=== PATIENT | female | born 1995 | race Caucasian/White ===

== ENCOUNTER 2021-03-27 15:59 | Emergency (ER) | payer BC, MEDICAID, SELFPAY ==
[2021-03-27 16:02] VITALS: BP 153/69; PULSE 92; RESP 16; TEMP 36.6; O2SAT 98; BMI 34.9
[2021-03-27 16:10] VITALS: BP 153/69; PULSE 85; RESP 18; O2SAT 98
--- NOTE | 2021-03-27 16:11 | USR_ITS ---
NOTE: Report was unsigned for reason: Order was edited. Original Signature date and time was: 03/27/21 @ 1804 PROCEDURE INFORMATION: Exam: US Duplex Artery or Vein of the Abdominal and/or Reproductive Organs, Limited Exam date and time: 03/27/2021 5:02 PM Age: 25 years old Clinical indication: Other: Bleeding; Prior surgery; Surgery date: 1-6 months; Surgery type: x8wks ago; Additional info: Heavy vaginal bleeding 8 weeks post TECHNIQUE: Imaging protocol: Real-time duplex ultrasound scan of the arterial or venous flow of the abdomen and/or reproductive organs, with color Doppler flow and spectral waveform analysis with image documentation. Exam focused on the region of clinical interest. Duplex images were received to evaluate vascular conditions. COMPARISON: No relevant prior studies available. FINDINGS: Uterus: There is no hypervascularity of the endometrium. Ovaries: Right ovary has normal color Doppler flow. Spectral waveforms are normal. Left ovary is not clearly visible. IMPRESSION: 1. There is no right ovarian torsion. 2. The left ovary is not visible. PROCEDURE INFORMATION: Exam: US Pelvis, Transvaginal Exam date and time: 03/27/2021 5:02 PM Age: 25 years old Clinical indication: Other: Bleeding; Prior surgery; Surgery date: 1-6 months; Surgery type: x8wks ago; Additional info: Heavy vaginal bleeding 8 weeks post TECHNIQUE: Imaging protocol: Real-time transvaginal pelvic ultrasound with image documentation. Transvaginal imaging was used for better evaluation of the endometrium, adnexa, and/or cervix. COMPARISON: No relevant prior studies available. FINDINGS: Uterus/cervix: Uterine size and morphology is normal. Uterine dimensions are about 9.3 cm x 5.5 cm x 4.5 cm. The endometrial complex is homogeneous in echotexture without focal mass. No thickening. Thickness 6-7 mm. No hypervascularity detected. Right adnexa: The right ovary has normal size measuring 3.8 cm x 2.8 cm x 2.5 cm. Several small simple subcentimeter follicles within the right ovary are identified. Left adnexa: Left ovary is not visible. The left ovary is not visible. The left adnexa is obscured by bowel gas. Intraperitoneal space: No free fluid. [facility] US/US transvaginal [id number] IMPRESSION: 1. Normal ultrasound of the pelvis. 2. There is no ultrasound evidence of retained products of conception.
--- NOTE | 2021-03-27 16:14 | ED_ITS ---
Documented by User: [email or web address] Livingston 03/28/21 07:05 HPI - Female Genitourinary General: Chief complaint: Vaginal Bleeding Stated complaint: vaginal bleeding Time Seen by Provider: 03/27/21 16:11 History of Present Illness: HPI Narrative: Patient is a 25-year-old female comes to the ED with vaginal bleeding. Patient says she is having heavy vaginal bleeding approximately 8 weeks . This past was her first and they had to do an emergency due to patient having placenta previa and some vaginal bleeding at 36 weeks. Patient says the went well and baby is doing great. She does not breast-feed currently and received the Depo shot for control. About 6 weeks post she started developing some vaginal bleeding. She says it is just slowly increased over the past 2 weeks. For the past 2 days she is going through an adult depends every 2 hours. She endorses having some cramping abdominal pain that comes and goes. She says at its worst she rates it a 5 out of 10. She says she has been taking Tylenol and Motrin and took some Motrin before coming here to the ED. patient says she has normal periods regular but is always on control. She contacted her marble ceiling installer doctor in [place] today and they told her to come to the ED for further evaluation. Associated symptoms: Reports abdominal pain (Generalized lower crampy); Deny headache(s) or nausea Date of Last Menstrual Period: 03/27/21 Review of Systems Const: Denies: fever(s), chills or fatigue Eyes: Denies: change in vision or eye discomfort ENMT: Denies: throat pain, odynophagia, nasal discharge or nasal congestion Card: Denies: chest pain, palpitations, edema, swelling of feet/ankles, dyspnea on exertion or orthopnea Resp: Denies: dyspnea, productive cough or non-productive cough GI: Reports: abdominal pain (Generalized lower crampy); Denies: nausea, vomiting, diarrhea, constipation or hematochezia : Reports: vaginal bleeding; Denies: flank pain, dysuria or hematuria Musc: Denies: neck pain, back pain or extremity swelling Skin/Breast: Denies: rash or new lesions Neuro: Denies: headache(s), numbness in extremities or weakness in extremities [facility] Reproductive History: Date of last menstrual period: 03/27/21 Physical Exam Const: COMMON NORMALS: no acute distress, patient oriented x3, healthy appearing and alert GENERAL APPEARANCE: cooperative and comfortable HENMT: COMMON NORMALS: normocephalic HEAD & SCALP: normocephalic MOUTH: Normal oral and palatal mucosa present THROAT: posterior oropharynx normal and uvula midline Eye: COMMON NORMALS: Equal, round and reactive pupils present PUPIL: Yes Equal, round and reactive pupils present Neck/C-Spine: COMMON NORMALS: supple GENERAL: Yes normal visual inspection Resp: COMMON NORMALS: normal respiratory effort, No retractions, No use of accessory muscles and clear to auscultation bilaterally AUSCULTATION: clear to auscultation bilaterally Cardio: COMMON NORMALS: regular rate, regular rhythm, S1 normal heart sound present, S2 normal heart sound present, No gallops present (Cardio), No clicks present (Cardio), No murmurs present (Cardio) and Peripheral pulses 2+ throughout RATE: regular rate RHYTHM: regular rhythm HEART SOUNDS: S1 normal heart sound present and S2 normal heart sound present PERIPHERAL PULSES: Peripheral pulses 2+ throughout GI: COMMON NORMALS: Normal to inspection, nondistended, normoactive bowel sounds present, Soft to palpation, non-tender and no masses PALPATION: Yes Soft to palpation : COMMON NORMALS: Yes no CVA tenderness BLADDER/KIDNEY EXAM: Yes no CVA tenderness Back/Pelvis: COMMON NORMALS: no CVA tenderness Extremity: COMMON NORMALS: normal to inspection Neuro: COMMON NORMALS: patient oriented x3 and moves all extremities SENSORIUM/ORIENTATION: Yes alert Skin: GENERAL SKIN EXAM: dry skin Course Vital Signs: Vital signs: Vital Signs Temperature 98.9 F 03/27/21 18:44 Pulse Rate 61 03/27/21 18:44 Respiratory Rate 18 03/27/21 18:44 Blood Pressure 114/65 03/27/21 18:44 Pulse Oximetry 96 03/27/21 16:51 MDM - Female Lab Data: Attestation: I reviewed the patient's lab results. Labs: Lab Results 03/27/21 03/27/21 03/27/21 Range/Units 16:40 16:48 16:48 WBC 5.9 (4.0-10.0) 10^3/ uL RBC 4.00 L (4.1-5.3) 10^6/u L Hgb 11.9 (11.5-15.3) g/dL Hct 35.6 L (37.0-47.0) % MCV 89.0 (81-99) fL MCH 29.8 (28.0-34.0) pg MCHC 33.4 (30.0-36.0) g/dL RDW 13.2 (12.1-15.1) % Plt Count 311 (130-400) 10^3/c mm MPV 10.7 H (7.4-10.4) fL Neut % (Auto) 53.0 % Lymph % (Auto) 33.1 % Gregg % (Auto) 7.5 % Eos % (Auto) 5.3 % Baso % (Auto) 0.8 % Neut # (Auto) 3.13 (1.8-7.7) 10^3/u L Lymph # (Auto) 2.0 (0.8-4.8) 10^3/u L Gregg # (Auto) 0.4 (0.2-0.9) 10^3/u L Eos # (Auto) 0.3 (0.0-0.8) 10^3/u L Baso # (Auto) 0.1 (0.0-0.1) 10^3/u L Nucleated RBC % (a uto) 0 % Nucleated RBCs # 0.0 /100WBC Sodium 140 (136-145) mmol/L Potassium 4.1 (3.5-5.1) mmol/L Chloride 105 (98-107) mmol/L Carbon Dioxide 22 (22-29) mmol/L Anion Gap 17.1 (5-19) BUN 11 (6-20) mg/dL Creatinine 0.5 (0.5-0.9) mg/dL GFR Calculation 151.6 H (90-130) mL/min Glucose 98 (65-115) mg/dL Calculated Osmolal ity 289 (285-295) mOsm/k g Calcium 8.5 (8.5-10.5) mg/dL Total Bilirubin 0.3 (0.15-1.2) mg/dL AST 12 (0-32) U/L ALT 17 (0-33) U/L Alkaline Phosphata se 100 (35-105) IU/L Total Protein 6.6 (6.6-8.7) g/dL Albumin 4.4 (3.5-5.2) g/dL Globulin 2.2 (1.3-4.6) g/dL Urine Color Hanane (Yellow) Urine Appearance Hazy A (CLEAR) Urine pH 6.5 (5-7) Ur Specific Gravit y 1.020 (1.005-1.030) Urine Protein Neg (Negative) Urine Glucose (UA) Norm (Normal) Urine Ketones Negative (Negative) Urine Blood 3+ H (Negative) Urine Nitrate Negative (Negative) Urine Bilirubin Neg (Negative) Urine Urobilinogen 1 H (Negative) mg/dL Ur Leukocyte Frances ase 1+ H (Negative) Urine RBC 25-40 H (0-2) /hpf Urine WBC 10-15 H (0-5) /hpf Ur Squamous Epith Cells 0-4 H (0-5) /hpf Amorphous Sediment Not Reportable Urine Bacteria 1+ H (NONE) /hpf Discharge Plan Discharge Patient Disposition: Home Clinical Impression: Vaginal bleeding Condition: Stable Prescriptions: No Action No Known Home Medications RF: 0 Discharge Orders: Discharge ED (Routine); Ordered 03/27/21 Ordered By: Kenny Sullivan Discharge Diet: Usual diet Discharge Activity: Increase activity as tolerated Patient Instructions: Menstruation (ED), Opioid Safety Activity Restrictions/Additional Instructions: Follow-up with OUTSIDE INDUSTRIAL SALES REPRESENTATIVE in the morning. Healthy diet. Drink plenty of fluids. Return to the emergency room as needed for worsening symptoms such as increasing blood flow, lightheadedness, difficulty breathing. Use acetaminophen or ibuprofen for pain. Sign Out Sign Out Data: Patient Sign Out occurred on 03/27/21 at 17:11. Patient's care was discussed, and care was transferred from to Kenny Sullivan. Coding Level of Care Code ED Cigar Binder for Chg Fwd Exam Comprehensive Documented by User: [email or web address] 03/27/21 18:05 HPI - Female Genitourinary General: Chief complaint: Vaginal Bleeding Stated complaint: vaginal bleeding Time Seen by Provider: 03/27/21 16:11 Course ED course: 1700, assumed care of patient from Jose Manuel Velazquez PA-C. We are awaiting lab and ultrasound results. Patient was reported to me as stable. Expect patient to be discharged home and follow-up with OUTSIDE INDUSTRIAL SALES REPRESENTATIVE. Vital Signs: Vital signs: Vital Signs Temperature 98.9 F 03/27/21 18:44 Pulse Rate 61 03/27/21 18:44 Respiratory Rate 18 03/27/21 18:44 Blood Pressure 114/65 03/27/21 18:44 Pulse Oximetry 96 03/27/21 16:51 MDM - Female MDM Narrative: Medical decision making narrative: Patient comes in today for abnormal vaginal bleeding starting last night. Patient is 8 weeks and had a Depo shot 2 weeks ago at her first appointment. Patient reported that since her appointment 2 weeks ago she has had some bleeding that worsened last night. On exam patient is alert oriented. Patient appears no acute distress. Patient denies any severe discomfort except for some mild pelvic cramping. D ifferential diagnosis includes but not limited to menstrual bleeding, abnormal uterine bleeding, fibroids, endometrial polyp, neoplasia, medication, ovulatory dysfunction. Laboratory values noted a hemoglobin of 11.9 and hematocrit 35.6. Ultrasound noted no significant abnormalities. Reviewed exam with patient with recommendations for treatment follow-up with OUTSIDE INDUSTRIAL SALES REPRESENTATIVE in the morning. Patient reported understanding and agreed to plan. Lab Data: Labs: Lab Results 03/27/21 03/27/21 03/27/21 Range/Units 16:40 16:48 16:48 WBC 5.9 (4.0-10.0) 10^3/ uL RBC 4.00 L (4.1-5.3) 10^6/u L Hgb 11.9 (11.5-15.3) g/dL Hct 35.6 L (37.0-47.0) % MCV 89.0 (81-99) fL MCH 29.8 (28.0-34.0) pg MCHC 33.4 (30.0-36.0) g/dL RDW 13.2 (12.1-15.1) % Plt Count 311 (130-400) 10^3/c mm MPV 10.7 H (7.4-10.4) fL Neut % (Auto) 53.0 % Lymph % (Auto) 33.1 % Gregg % (Auto) 7.5 % Eos % (Auto) 5.3 % Baso % (Auto) 0.8 % Neut # (Auto) 3.13 (1.8-7.7) 10^3/u L Lymph # (Auto) 2.0 (0.8-4.8) 10^3/u L Gregg # (Auto) 0.4 (0.2-0.9) 10^3/u L Eos # (Auto) 0.3 (0.0-0.8) 10^3/u L Baso # (Auto) 0.1 (0.0-0.1) 10^3/u L Nucleated RBC % (a uto) 0 % Nucleated RBCs # 0.0 /100WBC Sodium 140 (136-145) mmol/L Potassium 4.1 (3.5-5.1) mmol/L Chloride 105 (98-107) mmol/L Carbon Dioxide 22 (22-29) mmol/L Anion Gap 17.1 (5-19) BUN 11 (6-20) mg/dL Creatinine 0.5 (0.5-0.9) mg/dL GFR Calculation 151.6 H (90-130) mL/min Glucose 98 (65-115) mg/dL Calculated Osmolal ity 289 (285-295) mOsm/k g Calcium 8.5 (8.5-10.5) mg/dL Total Bilirubin 0.3 (0.15-1.2) mg/dL AST 12 (0-32) U/L ALT 17 (0-33) U/L Alkaline Phosphata se 100 (35-105) IU/L Total Protein 6.6 (6.6-8.7) g/dL Albumin 4.4 (3.5-5.2) g/dL Globulin 2.2 (1.3-4.6) g/dL Urine Color Hannae (Yellow) Urine Appearance Hazy A (CLEAR) Urine pH 6.5 (5-7) Ur Specific Gravit y 1.020 (1.005-1.030) Urine Protein Neg (Negative) Urine Glucose (UA) Norm (Normal) Urine Ketones Negative (Negative) Urine Blood 3+ H (Negative) Urine Nitrate Negative (Negative) Urine Bilirubin Neg (Negative) Urine Urobilinogen 1 H (Negative) mg/dL Ur Leukocyte Frances ase 1+ H (Negative) Urine RBC 25-40 H (0-2) /hpf Urine WBC 10-15 H (0-5) /hpf Ur Squamous Epith Cells 0-4 H (0-5) /hpf Amorphous Sediment Not Reportable Urine Bacteria 1+ H (NONE) /hpf Discharge Plan Discharge Patient Disposition: Home Clinical Impression: Vaginal bleeding Condition: Stable Prescriptions: No Action No Known Home Medications RF: 0 Discharge Orders: Discharge ED (Routine); Ordered 03/27/21 Ordered By: Kenny Sullivan Discharge Diet: Usual diet Discharge Activity: Increase activity as tolerated Patient Instructions: Menstruation (ED), Opioid Safety Activity Restrictions/Additional Instructions: Follow-up with OUTSIDE INDUSTRIAL SALES REPRESENTATIVE in the morning. Healthy diet. Drink plenty of fluids. Return to the emergency room as needed for worsening symptoms such as increasing blood flow, lightheadedness, difficulty breathing. Use acetaminophen or ibuprofen for pain. Sign Out Sign Out Data: Patient Sign Out occurred on 03/27/21 at 17:11. Patient's care was discussed, and care was transferred from to Kenny Sullivan. Coding Level of Care Code ED Cigar Binder for Chg Fwd Exam Comprehensive
[2021-03-27 16:51] VITALS: BP 107/48; PULSE 69; RESP 18; O2SAT 96
[2021-03-27 16:54] LABS: Basophils # 0.1 10^3/uL (0.0-0.1); Basophils % 0.8 %; Eosinophils # 0.3 10^3/uL (0.0-0.8); Eosinophils % 5.3 %; Hematocrit 35.6 % (37.0-47.0); Hemoglobin 11.9 g/dL (11.5-15.3); Lymphocytes % 33.1 %; Mean Corpuscular HGB Conc 33.4 g/dL (30.0-36.0); Mean Corpuscular Hemoglobin 29.8 pg (28.0-34.0); Mean Platelet Volume 10.7 fL (7.4-10.4); Monocytes # 0.4 10^3/uL (0.2-0.9); Monocytes % 7.5 %; Neutrophils # 3.13 10^3/uL (1.8-7.7); Nucleated Red Blood Cells % 0 %; Platelet Count 311 10^3/cmm (130-400); Red Cell Distribution Width 13.2 % (12.1-15.1); White Blood Count 5.9 10^3/uL (4.0-10.0)
[2021-03-27 17:04] LABS: Blood Urine 3+ (Negative); Glucose Urine UA Norm (Normal); Ketones Urine Negative (Negative); Protein Urine Neg (Negative); Urine Appearance Hazy (CLEAR); Urine Color Amber (Yellow); pH Urine 6.5 (5-7)
[2021-03-27 17:05] LABS: Bacteria Urine 1+ /hpf; Bilirubin Urine Neg (Negative); Leukocyte Esterase Urine 1+ (Negative); Nitrate Urine Negative (Negative); RBC Urine 25-40 /hpf (0-2); Squamous Epithelial Cell Urine 0-4 /hpf (0-5); Urobilinogen Urine 1 mg/dL (Negative)
[2021-03-27 17:06] LABS: Add Urine Culture? Yes
[2021-03-27 17:14] LABS: Alanine Aminotransferase 17 U/L (0-33); Albumin Level 4.4 g/dL (3.5-5.2); Alkaline Phosphatase 100 IU/L (35-105); Anion Gap 17.1 (5-19); Aspartate Amino Transferase 12 U/L (0-32); Blood Urea Nitrogen 11 mg/dL (6-20); Calcium 8.5 mg/dL (8.5-10.5); Carbon Dioxide 22 mmol/L (22-29); Chloride 105 mmol/L (98-107); Globulin 2.2 g/dL (1.3-4.6); Glomerular Filtration Rate 151.6 mL/min (90-130); Glucose 98 mg/dL (65-115); Osmolality Calculated 289 mOsm/kg (285-295); Potassium 4.1 mmol/L (3.5-5.1); Sodium 140 mmol/L (136-145); Total Bilirubin 0.3 mg/dL (0.15-1.2); Total Protein 6.6 g/dL (6.6-8.7)
[2021-03-27 18:44] VITALS: BP 114/65; PULSE 61; RESP 18; TEMP 37.2
== END 2021-03-27 18:45 | disposition home or self-care (01) ==
PROVIDERS: Physician Assistant; Emergency Provider Nurse Practitioner Family
DX: N93.9 Abnormal uterine and vaginal bleeding, unspecified (principal)
CPT/HCPCS: 76830; 76856; 80053; 81001; 85025; 87086; 99283

== ENCOUNTER → 2021-08-08 11:19 | Outpatient (BNVA) | payer BC, SELFPAY | PROVIDERS: PCP Nurse Practitioner Family; Visit Provider Nurse Practitioner Family | DX: R59.1 Generalized enlarged lymph nodes (principal); Z13.6 Encounter for screening for cardiovascular disorders; Z79.899 Other long term (current) drug therapy; R53.83 Other fatigue; E55.9 Vitamin D deficiency, unspecified | CPT/HCPCS: 80053; 80061; 81003; 82306; 83036; 84439; 84443; 84481; 85025; 85651; 86140 ==

== ENCOUNTER → 2021-08-11 11:07 | Outpatient (BNVA) | payer BC, SELFPAY | PROVIDERS: PCP Nurse Practitioner Family; Visit Provider Nurse Practitioner Family | DX: R31.9 Hematuria, unspecified (principal); N39.0 Urinary tract infection, site not specified | CPT/HCPCS: 81003; 87086 ==

== ENCOUNTER → 2022-09-05 16:14 | Outpatient (BNVA) | payer BC, SELFPAY | PROVIDERS: Visit Provider Nurse Practitioner | DX: M79.671 Pain in right foot (principal) | CPT/HCPCS: 73630 ==